=== PATIENT | female | born 1975 | race Caucasian/White ===

== ENCOUNTER 2017-08-23 16:31 | Emergency (ER) | payer MEDICAID | END 2017-08-23 18:21 | disposition home or self-care (01) | LOC: E/R 18:21 | DX: H66.93 Otitis media, unspecified, bilateral (principal); H60.93 Unspecified otitis externa, bilateral; M94.0 Chondrocostal junction syndrome [Tietze]; J32.9 Chronic sinusitis, unspecified | CPT/HCPCS: 93005; 99284-25 ==

== ENCOUNTER 2018-07-21 01:33 | Emergency (ER) | payer MEDICAID ==
[2018-07-21] MEDS: predniSONE 20 MG TAB PO (03:53)
[2018-07-21 03:54] LABS: URINE PH (Dip) POC 5.5 (5.0-8.5)
[2018-07-21 03:54] LABS: URINE BLOOD (Dip) POC 3+ (NEGATIVE); URINE GLUCOSE (Dip) POC Negative (NEGATIVE); URINE KETONES (Dip) POC Negative (NEGATIVE); URINE LEUKOCYTE EST (Dip) POC Negative (NEGATIVE); URINE NITRITE (Dip) POC Negative (NEGATIVE); URINE TOTAL PROTEIN POC 1+ (NEGATIVE)
[2018-07-21] MEDS: ALBUTEROL 0.5% (NEB) 2.5 MG/0.5 ML AMP NEB (04:01)
[2018-07-21] MEDS: IPRATROPIUM (NEB) 0.5 MG/2.5 ML AMP NEB (04:01)
== END 2018-07-21 05:41 | disposition home or self-care (01) ==
LOC: FTE 01:33
DX: R05 Cough (principal); R09.81 Nasal congestion; R06.2 Wheezing
CPT/HCPCS: 71045; 81003; 81025; 94644; 99283-25

== ENCOUNTER 2019-02-23 17:38 | Emergency (ER) | payer MEDICAID | END 2019-02-23 18:41 | disposition home or self-care (01) | LOC: FTE 17:38 | DX: H66.001 Acute suppurative otitis media without spontaneous rupture of ear drum, right ear (principal) | CPT/HCPCS: 99283; Z7502 ==